=== PATIENT | male | born 1975 | race Caucasian/White ===

== ENCOUNTER 2022-12-29 14:21 | Emergency (ER) | payer MEDICAID, OTHER ==
[~2022-12-29] VITALS: Ht 170.2 cm; Wt 83.9 kg
[2022-12-29] MEDS ORDERED: KETOROLAC 15 MG/ML VIAL IVP STA (14:34)
[2022-12-29] MEDS ORDERED: NS IV 1000 ML 1,000 ML IV STA (14:34)
[2022-12-29] MEDS ORDERED: PANTOPRAZOLE 40 MG (PROTONIX) VIAL IV STA (14:34)
[2022-12-29 14:43] LABS: BASOPHILS # (AUTO) 0.1 10^3/uL (0.0-0.1); BASOPHILS % (AUTO) 1 % (0-10); EOSINOPHILS # (AUTO) 0.3 10^3/uL (0.0-0.3); EOSINOPHILS % (AUTO) 3 % (0-10); HEMATOCRIT 44 % (40-54); LYMPHOCYTES # (AUTO) 3.5 10^3/uL (1.0-4.0); LYMPHOCYTES % (AUTO) 29 % (12-44); MEAN CORPUSCULAR HEMOGLOBIN 29 pg (25-34); MEAN CORPUSCULAR HGB CONC 34 g/dL (32-36); MEAN CORPUSCULAR VOLUME 85 fL (80-99); MEAN PLATELET VOLUME 8.5 fL (9.0-12.2); MONOCYTES # (AUTO) 0.8 10^3/uL (0.0-1.0); MONOCYTES % (AUTO) 6 % (0-12); NEUTROPHILS # (AUTO) 7.3 10^3/uL (1.8-7.8); NEUTROPHILS % (AUTO) 61 % (42-75); PLATELET COUNT 402 10^3/uL (130-400)
--- NOTE | 2022-12-29 14:43 | ED General ---
General Stated Complaint: CHEST PAIN Source of Information: Patient History of Present Illness Date Seen by Provider: Dec 29, 2022 Time Seen by Provider: 14:21 Initial Comments 47-year-old male presenting with complaints of chest tightness and pressure in his head. He states he also took a bunch of medicine and aspirin on an empty stomach and is having burning sensation in his stomach now. He feels like he is dehydrated. He reports using methamphetamines on Thursday and thinks that is contributing to some of this. He also was concerned that he was having an allergic reaction to his blood pressure medicine. He states that he had noticed a red area on his chest after he taken his blood pressure medicine. He also takes hydroxyzine for anxiety and cyclobenzaprine for muscle spasm medication. He reports living in [place] in [place] but that he works here in [place]. I asked if he had to leave work to come here and he states that he did not feel well enough to go to work today however he drove all the way here from [place] and passed multiple hospitals to come here to the stand-alone emergency department. He reports that he uses the [facility] in this area as well as gets medications from [place]. He denies any specific allergies to medi cations other than he thinks he might be allergic to the blood pressure medicine he is taking now. He states that the clinic had sent for a different medicine but he has not gone to pick it up. Timing/Duration: 1-2 Days Severity: Moderate Modifying Factors: worse with Other (activity makes him feel worse. ) Associated Systoms: Chest Pain (tightness); No Cough, No Diaphoresis, No Fever/Chills; Headaches; No Loss of Appetite; Malaise; No Nausea/Vomiting, No Rash, No Seizure; Shortness of Air; No Syncope, No Weakness Allergies and Home Medications Allergies Coded Allergies: No Known Drug Allergies (Unverified , 12/29/22) Patient Home Medication List Home Medication List Reviewed: Yes Naproxen (Naprosyn) 500 Mg Tablet, 500 MG PO BID Prescribed by: ENOCH PATEL on 12/29/22 2884 Review of Systems Review of Systems Constitutional: No chills, No fever EENTM: No epistaxis, No nose congestion Respiratory: No cough Cardiovascular: see HPI Gastrointestinal: see HPI (burning in stomach after taking aspirin and meds on empty stomach) Genitourinary: no symptoms reported Musculoskeletal: no symptoms reported Skin: no symptoms reported Psychiatric/Neurological: Anxiety, Headache (pressure in head) Past Vvwwofe-Vpxgua-Eqkwti Hx Patient Social History Substance use?: Yes Substance type: Methamphetamine Past Medical History Surgery/Hospitalization HX: Anxiety, Hypertension, Methamphetamine abuse Physical Exam Vital Signs Vital Signs - First Documented 12/29/22 14:21 Temp 36.2 Pulse 110 Resp 16 B/P (MAP) 146/102 (117) Pulse Ox 97 O2 Delivery Room Air Capillary Refill : Height, Weight, BMI Height: '" Weight: lbs. oz. kg; BMI Method: General Appearance: No Apparent Distress, WD/WN, Anxious HEENT: PERRL/EOMI, Pharynx Normal; No Moist Mucous Membranes (slightly dry mucus membranes) Neck: Full Range of Motion, Normal Inspection, Non Tender, Supple Respiratory: Chest Non Tender, Lungs Clear, Normal Breath Sounds, No Accessory Muscle Use, No Respiratory Distress Cardiovascular: Regular Rate, Rhythm, Normal Peripheral Pulses Gastrointestinal: Normal Bowel Sounds, No Pulsatile Mass, Non Tender, Soft Rectal: Deferred Extremity: Normal Capillary Refill, Normal Inspection, No Pedal Edema Neurologic/Psychiatric: Alert, Oriented x3, commuter train operator II-XII Norm as Tested, Other (anxious) Skin: Normal Color, Warm/Dry Progress/Results/Core Measures Suspected Sepsis SIRS Temperature: Pulse: Respiratory Rate: Laboratory Tests 12/29/22 14:30: White Blood Count 12.0H Blood Pressure / Mean: Laboratory Tests 12/29/22 14:30: Creatinine 1.13, INR Comment 1.0, Platelet Count 402H, Total Bilirubin 1.0 Results/Orders Lab Results Laboratory Tests Test 12/29/22 14:30 12/29/22 15:10 Range/Units White Blood Count 12.0 H 4.3-11.0 10^3/uL Red Blood Count 5.20 4.30-5.52 10^6/uL Hemoglobin 15.0 13.3-17.7 g/dL Hematocrit 44 40-54 % Mean Corpuscular Volume 85 80-99 fL Mean Corpuscular Hemoglobin 29 25-34 pg Mean Corpuscular Hemoglobin Concent 34 32-36 g/dL Red Cell Distribution Width 12.5 10.0-14.5 % Platelet Count 402 H 130-400 10^3/uL Mean Platelet Volume 8.5 L 9.0-12.2 fL Immature Granulocyte % (Auto) 0 % Neutrophils (%) (Auto) 61 42-75 % Lymphocytes (%) (Auto) 29 12-44 % Monocytes (%) (Auto) 6 0-12 % Eosinophils (%) (Auto) 3 0-10 % Basophils (%) (Auto) 1 0-10 % Neutrophils # (Auto) 7.3 1.8-7.8 10^3/uL Lymphocytes # (Auto) 3.5 1.0-4.0 10^3/uL Monocytes # (Auto) 0.8 0.0-1.0 10^3/uL Eosinophils # (Auto) 0.3 0.0-0.3 10^3/uL Basophils # (Auto) 0.1 0.0-0.1 10^3/uL Immature Granulocyte # (Auto) 0.0 0.0-0.1 10^3/uL Prothrombin Time 13.4 12.2-14.7 SEC INR Comment 1.0 0.8-1.4 Activated Partial Thromboplast Time 30 24-35 SEC Sodium Level 137 135-145 MMOL/L Potassium Level 4.0 3.6-5.0 MMOL/L Chloride Level 100 98-107 MMOL/L Carbon Dioxide Level 24 21-32 MMOL/L Anion Gap 13 5-14 MMOL/L Blood Urea Nitrogen 12 7-18 MG/DL Creatinine 1.13 0.60-1.30 MG/DL Estimat Glomerular Filtration Rate 81 BUN/Creatinine Ratio 11 Glucose Level 114 H 70-105 MG/DL Calcium Level 10.2 H 8.5-10.1 MG/DL Corrected Calcium 9.8 8.5-10.1 MG/DL Magnesium Level 2.2 1.6-2.4 MG/DL Total Bilirubin 1.0 0.1-1.0 MG/DL Aspartate Amino Transf (AST/SGOT) 11 5-34 U/L Alanine Aminotransferase (ALT/SGPT) 21 0-55 U/L Alkaline Phosphatase 74 40-136 U/L Troponin I < 0.30 <0.30 NG/ML Pro-B-Type Natriuretic Peptide < 36.0 <125.0 PG/ML Total Protein 7.8 6.4-8.2 GM/DL Albumin 4.5 3.2-4.5 GM/DL Lipase 26 8-78 U/L Serum Alcohol < 10 <10 MG/DL Urine Color YELLOW Urine Clarity CLEAR Urine pH 7.0 5-9 Urine Specific [place] <=1.005 1.016-1.022 Urine Protein NEGATIVE NEGATIVE Urine Glucose (UA) NEGATIVE NEGATIVE Urine Ketones NEGATIVE NEGATIVE Urine Nitrite NEGATIVE NEGATIVE Urine Bilirubin NEGATIVE NEGATIVE Urine Urobilinogen 0.2 < = 1.0 MG/DL Urine Leukocyte Esterase NEGATIVE NEGATIVE Urine RBC (Auto) TRACE-I H NEGATIVE Urine RBC 2-5 H /HPF Urine WBC 2-5 /HPF Urine Squamous Epithelial Cells RARE /HPF Urine Crystals NONE /LPF Urine Bacteria NEGATIVE /HPF Urine Casts NONE /LPF Urine Mucus SMALL H /LPF Urine Culture Indicated NO Urine Opiates Screen NEGATIVE NEGATIVE Urine Oxycodone Screen NEGATIVE NEGATIVE Urine Methadone Screen NEGATIVE NEGATIVE Urine Propoxyphene Screen NEGATIVE NEGATIVE Urine Barbiturates Screen NEGATIVE NEGATIVE Ur Tricyclic Antidepressants Screen NEGATIVE NEGATIVE Urine Phencyclidine Screen NEGATIVE NEGATIVE Urine Amphetamines Screen POSITIVE H NEGATIVE Urine Methamphetamines Screen POSITIVE H NEGATIVE Urine Benzodiazepines Screen NEGATIVE NEGATIVE Urine Cocaine Screen NEGATIVE NEGATIVE Urine Cannabinoids Screen NEGATIVE NEGATIVE My Orders Orders - ENOCH PATEL MD Cbc With Automated Diff (12/29/22 14:34) Magnesium (12/29/22 14:34) Chest 1 View Ap/Pa Only (12/29/22 14:34) Ekg Tracing (12/29/22 14:34) Comprehensive Metabolic Panel (12/29/22 14:34) Protime With Inr (12/29/22 14:34) Partial Thromboplastin Time (12/29/22 14:34) O2 (12/29/22 14:34) Monitor-Rhythm Ecg Trace Only (12/29/22 14:34) Ed Iv/Invasive Line Start (12/29/22 14:34) Lipase (12/29/22 14:34) Troponin I Fs (12/29/22 14:34) Probnp Fs (12/29/22 14:34) Ua Culture If Indicated (12/29/22 14:34) Drug Screen Stat (Urine) (12/29/22 14:34) Alcohol (12/29/22 14:34) Ns Iv 1000 Ml (Sodium Chloride 0.9%) (12/29/22 14:34) Pantoprazole Injection (Protonix Injecti (12/29/22 14:34) Ketorolac Injection (Toradol Injection) (12/29/22 14:34) Orphenadrine Inj (Ed Only) (Norflex Inje (12/29/22 15:55) Antacid Suspension (Mylanta Suspension (12/29/22 15:55) Vital Signs/I&O 12/29/22 12/29/22 14:21 14:21 Temp 36.2 Pulse 110 Resp 16 B/P (MAP) 146/102 (117) Pulse Ox 97 O2 Delivery Room Air Room Air Capillary Refill : Progress Note #1: Progress Note Potential diagnosis of anxiety, myocardial infarction, acute coronary syndrome, hypertensive urgency, electrolyte imbalance, dehydration, UTI, substance abuse, alcohol abuse, renal failure, hepatic failure. Obtain peripheral IV access and send labs for complete blood count, comprehensive metabolic profile, troponin, proBNP, magnesium, pro time, INR, PTT, alcohol level. Urinalysis along with urine drug screen were also ordered. Obtain electrocardiogram and place patient on cardiac search engine optimization manager. On my initial interpretation of the cardiac search engine optimization manager he has sinus tachycardia with a heart rate around 110. His electrocardiogram showed sinus tachycardia but no ST elevation or ischemia changes. Obtain a 1 view chest x-ray looking for signs of acute pathology in his chest that might contribute to his complaint of chest tightness and pressure into his head and neck. Administer normal saline 1 L IV fluid bolus for hydration, Toradol 15 mg IV for complaint of pressure and pain in his head, Protonix 40 mg IV for burning sensation in his stomach after taking aspirin and medicine on an empty stomach. We will allow the patient to drink water to try and help with hydration as well as getting the IV fluids. As patient drove himself here will defer any medicine or treatment for anxiety until he was able to be discharged and he can take that once he got home. He has hydroxyzine reportedly for anxiety. On review of the external medication prescribing history through the EMR he had a 15-day prescription of labetalol 100 mg p.o. twice daily prescribed on December 19. He also had naproxen and cyclobenzaprine prescribed previously. Progress Note #2: Time: 15:11 Progress Note Complete blood count shows his white blood cell count was at the upper limit of normal at 12 and his hemoglobin was 15 with normal platelets of 402. He was able to provide a urine specimen. His initial blood pressure was 146/102 and repeat was 133/100. As he was resting in the bed his pressure came down to 126/84. On my personal interpretation and review I did not appreciate any acute process on his 1 view chest x-ray. 1525 I reviewed the radiologist report on the 1 view chest x-ray and they agree there is no acute process. His comprehensive metabolic profile came back and did not show any acute significant electrolyte abnormality. He had a normal sodium of 137, BUN of 12, creatinine 1.13, glucose 114. He had a negative alcohol level less than 10. His magnesium level was good at 2.2. He had a normal lipase at 26 to help rule out pancreatitis. His troponin was less than 0.3 and his proBNP was less than 36. Considering his symptoms have been going on longer than 6 hours I would consider this a delta troponin to rule out acute myocardial infarction. His coagulation factors showed a normal pro time of 13.4 with an INR of 1 and PTT of 30 so he was not exhibiting coagulopathy or abnormal clotting factors off of this. awaiting urinalysis and drug screen results Progress Note #3: Time: 15:48 Progress Note Urinalysis does not show infection. His UDS is still positive for Methamphetamine despite pt insisting he has not had any for 72 hours. I counseled the patient that his labs had looked okay and his repeat blood pressure was 121/85. He was complaining of some muscle pain and tightness in his back and shoulders. He reports that the chest tightness was resolved but he still had a little burning sensation in his stomach. Will administer Norflex 60 mg IV push for muscle spasms and give Maalox 30 mL by mouth for his burning in the stomach. Encouraged to follow-up with the clinic about his medications and concerns about his blood pressure and prostate as well as anxiety. Given handout about lifestyle changes and DASH diet that he could use to try and help with his blood pressure. Strongly encouraged to avoid drug use as the methamphetamines will make all of his symptoms worse. 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 Advised that he could return to work tomorrow. 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 Encouraged to check back with the clinic and providers that he sees in [place]. Also given information for the [facility] clinic if he wanted an alternative clinic to follow-up with. ECG Initial ECG Impression Date: Dec 29, 2022 Initial ECG Impression Time: 14:29 Initial ECG Rate: 105 Initial ECG Rhythm: S.Tach Initial ECG Comparisson: No Previous ECG Available Comment On my personal interpretation and review the electrocardiogram shows sinus tachycardia with a heart rate of 105 bpm. MN interval [address] elevation. QT interval 313 ms with a QTc interval 374 ms. There is no prior tracing available for comparison. Diagnostic Imaging Diagonstic Imaging: Xray Plain Films/CT/US/NM/MRI: chest Comments NAME: MAYA STRONG MED REC#: [id number] PT STATUS: REG ER : 1975 PHYSICIAN: ENOCH PATEL MD ADMIT DATE: 12/29/22/ER FS Draft Date of Exam:12/29/22 CHEST 1 VIEW AP/PA ONLY Indication: Chest pain Portable chest 2:46 PM Heart size and pulmonary vascularity are normal. Lungs are clear. There are no effusions or pneumothoraces. IMPRESSION: Negative chest Dictated on workstation # [id number] Dict: 12/29/22 1519 Trans: 12/29/22 1521 [facility] [id number] Interpreted by: BROOKE MASCORRO MD Electronically signed by: Reviewed: Reviewed by Me Departure Impression Primary Impression: Anxiety Additional Impressions: Methamphetamine abuse Dehydration Disposition: 01 HOME, SELF-CARE Condition: Stable Departure-Patient Inst. Decision time for Depature: 15:53 Referrals: [facility] Patient Instructions: Anxiety, Adult ED, Controlling your blood pressure through lifestyle, DASH Diet, Dehydration, Adult ED, High Blood Pressure ED, Methamphetamine Add. Discharge Instructions: Your heart tests all look good and you do not have findings for a heart attack or heart damage. Your salts in the blood (Electrolytes) and your heart tests were all ok. You do not have signs of infection with your urine or blood or lungs. Try following a low salt diet and you also have a handout about lifestyle changes to help with your blood pressure. Follow up with the clinic about your blood pressure, prostate issues and muscle tightness/spasms. Avoid using Methamphetamines or drugs as they will make your symptoms worse. Scripts Naproxen (Naprosyn) 500 Mg Tablet 500 MG PO BID for inflammation for 15 Days, #30 TAB 0 Refills Prov: ENOCH PATEL MD 12/29/22 Work/School Note: Work Release Form Date Seen in the Emergency Department: Dec 29, 2022 Return to Work: Dec 30, 2022 Restrictions: No Restrictions ENOCH PATEL MD Dec 29, 2022 14:43
[2022-12-29 15:05] LABS: PROTHROMBIN TIME PATIENT 13.4 SEC (12.2-14.7)
[2022-12-29 15:06] LABS: ALKALINE PHOSPHATASE 74 U/L (40-136); BUN/CREATININE RATIO 11; CALCIUM 10.2 MG/DL (8.5-10.1); CARBON DIOXIDE 24 MMOL/L (21-32); CHLORIDE 100 MMOL/L (98-107); CREATININE SERUM 1.13 MG/DL (0.60-1.30); GFR ESTIMATED 81; GLUCOSE 114 MG/DL (70-105); MAGNESIUM 2.2 MG/DL (1.6-2.4); SODIUM 137 MMOL/L (135-145)
[2022-12-29 15:07] LABS: ALANINE AMINOTRANSFERASE 21 U/L (0-55); ALBUMIN 4.5 GM/DL (3.2-4.5); TOTAL PROTEIN 7.8 GM/DL (6.4-8.2)
[2022-12-29 15:18] LABS: BILIRUBIN,URINE NEGATIVE (NEGATIVE); CLARITY,URINE CLEAR; COLOR,URINE YELLOW; GLUCOSE, URINE (UA) NEGATIVE (NEGATIVE); KETONES,URINE NEGATIVE (NEGATIVE); LEUKOCYTE ESTERASE ,URINE NEGATIVE (NEGATIVE); NITRITE,URINE NEGATIVE (NEGATIVE); PROTEIN,URINE NEGATIVE (NEGATIVE)
[2022-12-29 15:21] LABS: LIPASE 26 U/L (8-78)
--- NOTE | 2022-12-29 15:21 | Diagnostic Imaging Report ---
Indication: Chest pain Portable chest 2:46 PM Heart size and pulmonary vascularity are normal. Lungs are clear. There are no effusions or pneumothoraces. IMPRESSION: Negative chest Dictated by: Dictated on workstation # [id number]
[2022-12-29 15:27] LABS: BACTERIA,URINE NEGATIVE /HPF; SQUAMOUS EPITHELIAL CELL,UR RARE /HPF
[2022-12-29 15:29] LABS: AMPHETAMINE SCREEN, URINE POSITIVE (NEGATIVE); BARBITURATE SCREEN URINE NEGATIVE (NEGATIVE); BENZODIAZEPINES SCREEN URINE NEGATIVE (NEGATIVE); CANNABINOID SCREEN, URINE NEGATIVE (NEGATIVE); COCAINE SCREEN URINE NEGATIVE (NEGATIVE); METHADONE STAT NEGATIVE (NEGATIVE); OPIATE SCREEN URINE NEGATIVE (NEGATIVE); OXYCODONE STAT NEGATIVE (NEGATIVE); PROPOXYPHENE STAT NEGATIVE (NEGATIVE); TRICYCLIC ANTIDEPRESSANTS SCRE NEGATIVE (NEGATIVE)
[2022-12-29] MEDS ORDERED: NAPR-1071 PO (15:53)
[2022-12-29] MEDS ORDERED: ORPHENADRINE 60 MG/2 ML (NORFLEX) AMP (ED ONLY) IVP STA (15:55)
[2022-12-29] MEDS ORDERED: ANTACID SUSP 30 ML UDC (MYLANTA) PO STA (15:55)
[2022-12-29 16:02] VITALS: BP 131/74
== END 2022-12-29 16:02 | disposition home or self-care (01) ==
LOC: ER FS 14:23
DX: F41.9 Anxiety disorder, unspecified (principal); F15.10 Other stimulant abuse, uncomplicated; E86.0 Dehydration; R20.8 Other disturbances of skin sensation; T39.015A Adverse effect of aspirin, initial encounter; M62.838 Other muscle spasm; R07.89 Other chest pain; R00.0 Tachycardia, unspecified; Z28.310 Unvaccinated for COVID-19
CPT/HCPCS: 36415; 71045; 80053; 80306; 81000; 83690; 83735; 83880; 84484; 85025; 85610; 85730; 93041; G0480; 80320; 93005

== ENCOUNTER 2022-12-29 16:47 | Emergency (ER) | payer MEDICAID ==
[~2022-12-29] VITALS: Ht 170.2 cm; Wt 88.5 kg
[~2022-12-29 16:47] MED LIST: NAPR-1071 PO
--- NOTE | 2022-12-29 17:07 | ED General ---
General Chief Complaint: General Problems/Pain Stated Complaint: FELLING FAINT Source of Information: Patient History of Present Illness Date Seen by Provider: Dec 29, 2022 Time Seen by Provider: 16:47 Initial Comments 47 yo male that was just discharged from ED after using Methamphetamines and feeling anxious. He had normal testing other than evidence of methamphetamines in his system. He feels like he is poisoned from the medicine that we gave him here in the ED. He never left the premises after being discharged. He reports that he has not slept or eaten since he did Methamphetamines over the weekend. He reports ingesting methamphetamines on Thursday but is still showing positive on his UDS from earlier this afternoon. He is breathing fast and appears anxious. He denies using any drugs or taking anything after he was discharged but has walked to his car and back several times. He reports he feels like he is drunk and took xanax. Timing/Duration: 1/2 Hour Modifying Factors: worse with Medication (he feels like any medicine we give him makes him worse) Associated Systoms: Chest Pain (tightness in chest); No Cough, No Diaphoresis, No Fever/Chills; Headaches; No Nausea/Vomiting; Shortness of Air, Weakness Allergies and Home Medications Allergies Coded Allergies: No Known Drug Allergies (Unverified , 12/29/22) Patient Home Medication List Home Medication List Reviewed: Yes Naproxen (Naprosyn) 500 Mg Tablet, 500 MG PO BID Prescribed by: ENOCH PATEL on 12/29/22 1553 Review of Systems Review of Systems Constitutional: No chills, No fever EENTM: No ear pain, No blurred vision, No epistaxis, No nose congestion Respiratory: see HPI Cardiovascular: see HPI Gastrointestinal: No nausea, No vomiting Genitourinary: No dysuria Musculoskeletal: neck pain Skin: no symptoms reported Psychiatric/Neurological: Anxiety, Emotional Problems, Headache Past Lfbjqwh-Fuozva-Kdfwlp Hx Patient Social History Tobacco Use?: No Substance use?: Yes Substance type: Methamphetamine Alcohol Use?: No Past Medical History Surgery/Hospitalization HX: Anxiety, Hypertension, Methamphetamine abuse Physical Exam Vital Signs Vital Signs - First Documented 12/29/22 17:02 Temp 36.5 Pulse 117 Resp 9 B/P (MAP) 127/57 (80) O2 Delivery Room Air Capillary Refill : Height, Weight, BMI Height: '" Weight: lbs. oz. kg; 28.00 BMI Method: General Appearance: WD/WN, Anxious HEENT: PERRL/EOMI Neck: Non Tender, Supple Respiratory: Chest Non Tender, Lungs Clear, Normal Breath Sounds, No Accessory Muscle Use, No Respiratory Distress Cardiovascular: Normal Peripheral Pulses, Tachycardia Gastrointestinal: Normal Bowel Sounds, No Pulsatile Mass, Non Tender, Soft Rectal: Deferred Extremity: Normal Capillary Refill, Normal Inspection, No Pedal Edema Neurologic/Psychiatric: Alert, Oriented x3; No Normal Mood/Affect (anxious); comptometrist II-XII Norm as Tested Skin: Warm/Dry Progress/Results/Core Measures Suspected Sepsis SIRS Temperature: Pulse: Respiratory Rate: Blood Pressure / Mean: Results/Orders Lab Results Laboratory Tests Test 12/29/22 17:02 Range/Units Glucometer 91 70-110 MG/DL My Orders Orders - ENOCH PATEL MD Accucheck Stat ONCE (12/29/22 17:00) Vital Signs/I&O 12/29/22 17:02 Temp 36.5 Pulse 117 Resp 9 B/P (MAP) 127/57 (80) O2 Delivery Room Air Capillary Refill : Progress Note : Progress Note Patient is having a panic attack and feeling anxious after being given Norflex and Maalox and Toradol along with IVF here in the ED. He is hyperventilating and feels bad. Some of this can be from the Methamphetamines he has been using. He insists that the Methamphetamines do not make him feel like this, only when he is given medicine from doctors that he feels this way. He feels this is different than his usual panic attack. His heart rate is 110-115 sinus tachycardia and oxygen is 100 % with his breathing 24 times a minute as well as blood pressure 127/54. Offered alprazolam for his anxiety but advised it would make him feel more sleepy and groggy and he would have to get someone to give him a ride home. He refused the alprazolam and that is when he mentioned that it feels like he is really drunk and took xanax at the same time. Since he has not had anything to eat and not really slept since using meth this weekend he was given some Jell-O and some ice water. Encouraged to try and lay back on the bed and rest but he continued to hyperventilate. I advised him that I did not have any other treatments for him at this time that would not make him more sedated. Some of this is probably also from the methamphetamine abuse. Since all of his testing had otherwise looked okay I did get an Accu-Chek and his sugar was 91. We will allow him to try and rest a little after he has the Jell-O and water. Otherwise we will plan on discharging and encouraged him to try finding someone to give him a ride to get him home or a place to stay. Departure Impression Primary Impression: Panic attack Additional Impression: Methamphetamine abuse Disposition: HOME, SELF-CARE Condition: Stable Departure-Patient Inst. Decision time for Depature: 17:19 Referrals: SIENNA FERGUSON MD (PCP/Family) Primary Care Physician Patient Instructions: Panic Attack ED, Anxiety, Adult ED, Tips to Help You [place] in Uncertain Times Add. Discharge Instructions: You need to rest and drink plenty of water and electrolyte drinks. Avoid using methamphetamines. Follow up with the clinic for your anxiety and medical concerns. All discharge instructions reviewed with patient and/or family. Voiced understanding. Work/School Note: Work Release Form Date Seen in the Emergency Department: Dec 29, 2022 Return to Work: Dec 31, 2022 Restrictions: No Restrictions ENOCH PATEL MD Dec 29, 2022 17:07
[2022-12-29 17:35] VITALS: BP 133/76
== END 2022-12-29 17:35 | disposition home or self-care (01) ==
LOC: EDUNIT# 16:47 → ER FS 16:48
DX: F41.0 Panic disorder [episodic paroxysmal anxiety] (principal); F15.10 Other stimulant abuse, uncomplicated
CPT/HCPCS: 82947